=== PATIENT | male | born 1995 | race Caucasian/White ===

== ENCOUNTER 2017-08-13 08:00 | Outpatient (RCR) | payer BC ==
[~2017-08-13 08:00] MED LIST: ADVIL200 MG PO; CEPHALEXIN500 M1 PO; NORCO 325 MG-7.1 TAB PO; ROCEPHIN 2GM VIAL21 IV
== END 2017-08-20 09:20 | disposition home or self-care (01) ==
LOC: WSOT 08:00
DX: T81.4XXA Infection following a procedure, initial encounter (principal); S61.212A Laceration without foreign body of right middle finger without damage to nail, initial encounter